=== PATIENT | female | born 1995 | race Hispanic/Latino ===

== ENCOUNTER 2017-12-06 10:58 | Inpatient (IN) | payer OTHER ==
[~2017-12-06] VITALS: Ht 149.9 cm; Wt 74.4 kg
[2017-12-06 11:50] LABS: ABSOLUTE BASOPHIL COUNT 0 /CUMM (0.0-0.2); ABSOLUTE EOSINOPHIL COUNT 0 /CUMM (0.0-0.7); ABSOLUTE LYMPH COUNT 1.7 /CUMM (1.2-3.4); ABSOLUTE MONOCYTE COUNT 0.6 /CUMM (0.10-0.60); BASOPHIL % 0.3 % (0.0-2.0); EOSINOPHIL % 0.5 % (0-5); GRANULOCYTE % 72.1 % (42.2-75.2); HEMATOCRIT 36.8 % (37-47); MEAN CORPUSCULAR HGB 29.3 PG (27.0-31.0); MEAN CORPUSCULAR HGB CONC 33.7 G/DL (33.0-37.0); MEAN CORPUSCULAR VOLUME 87.1 FL (81.0-99.0); MEAN PLATELET VOLUME 9.1 FL (7.4-10.4); PLATELET COUNT 216 /CUMM (130-400); RBC DISTRIBUTION WIDTH 15.9 % (11.5-14.5); RED BLOOD CELL CT 4.22 /CUMM (4.20-5.40); WHITE BLOOD CELL COUNT 8.4 /CUMM (4.8-10.8)
[2017-12-06] MEDS ORDERED: PRENATAL TABLE1 EAC2 PO (12:26)
[2017-12-06] MEDS ORDERED: MACROBID 100 M100 MG PO (12:27)
--- NOTE | 2017-12-06 17:53 | PN- Obstetrical ---
Subjective Subjective: NO C/O LIMA Objective Last 24 Hrs of Vital Signs/I&O Vital Signs Date Time Temp Pulse Resp B/P B/P Pulse O2 O2 Flow FiO2 Mean Ox Delivery Rate 12/06 1314 84 162/95 12/06 1224 141/96 Intake & Output 12/06 1600 12/06 0800 12/06 0000 Intake Total Output Total Balance Patient 164 lb Weight Physical Exam: PE PETITE WF IN LABOR ABD SOFT NT EXT +1 EDEMA +2 REFLEXES Obstetric Exam Dilation (cm): 6 Effacement (%): 90 Station: 0 Membranes: SROM Fluid: clear Multiple Gestation? No Contractions: Q 3MINUTES Assessment/Plan Assessment/Plan ASSESS TERM PIH PLAN CONT MG PITOCIN IUPC IFM
[2017-12-06 19:57] LABS: ABSOLUTE EOSINOPHIL COUNT 0 /CUMM (0.0-0.7)
[2017-12-06 20:25] LABS: ABSOLUTE BASOPHIL COUNT 0.1 /CUMM (0.0-0.2); ABSOLUTE GRANULOCYTE CT 10.8 /CUMM (1.4-6.5); ABSOLUTE LYMPH COUNT 1.7 /CUMM (1.2-3.4); ABSOLUTE MONOCYTE COUNT 0.7 /CUMM (0.10-0.60); BASOPHIL % 0.5 % (0.0-2.0); EOSINOPHIL % 0 % (0-5); GRANULOCYTE % 81.4 % (42.2-75.2); MEAN CORPUSCULAR HGB 28.6 PG (27.0-31.0); MEAN CORPUSCULAR HGB CONC 32.4 G/DL (33.0-37.0); MEAN CORPUSCULAR VOLUME 88.4 FL (81.0-99.0); MEAN PLATELET VOLUME 9.6 FL (7.4-10.4); PLATELET COUNT 251 /CUMM (130-400); RBC DISTRIBUTION WIDTH 16.2 % (11.5-14.5); RED BLOOD CELL CT 4.52 /CUMM (4.20-5.40)
[2017-12-06 20:27] LABS: WHITE BLOOD CELL COUNT 13.2 /CUMM (4.8-10.8)
--- NOTE | 2017-12-06 20:38 | Labor & Delivery Summary ---
Delivery Summary Vaginal Delivery: Vaginal: vertex Episiotomy/Lacerations: Episiotomy/Lacerations: 1ST DEGREE Placenta: Placenta: spontanteous, normal, 3 vessel Anesthesia: block Additional Comments: WITHOUT MECONIUM OVER 1ST DEGREE.VIABLE FEMALE .3 VESSEL CORD BY CCT INTACT .1ST DEGREE REPAIRED WITH SINGLE STITCH 30.
[2017-12-07 06:21] LABS: ABSOLUTE BASOPHIL COUNT 0 /CUMM (0.0-0.2); ABSOLUTE EOSINOPHIL COUNT 0 /CUMM (0.0-0.7); MEAN CORPUSCULAR VOLUME 88.2 FL (81.0-99.0)
[2017-12-07 06:35] LABS: ABSOLUTE GRANULOCYTE CT 10.6 /CUMM (1.4-6.5); ABSOLUTE LYMPH COUNT 2.1 /CUMM (1.2-3.4); ABSOLUTE MONOCYTE COUNT 1.2 /CUMM (0.10-0.60); BASOPHIL % 0.2 % (0.0-2.0); EOSINOPHIL % 0 % (0-5); GRANULOCYTE % 76.2 % (42.2-75.2); MEAN CORPUSCULAR HGB 27.9 PG (27.0-31.0); MEAN CORPUSCULAR HGB CONC 31.7 G/DL (33.0-37.0); MEAN PLATELET VOLUME 9.5 FL (7.4-10.4); PLATELET COUNT 232 /CUMM (130-400); RBC DISTRIBUTION WIDTH 16.2 % (11.5-14.5); RED BLOOD CELL CT 3.74 /CUMM (4.20-5.40); WHITE BLOOD CELL COUNT 13.9 /CUMM (4.8-10.8)
--- NOTE | 2017-12-07 16:25 | PN- Post Delivery/GYN ---
Subjective Subjective: NO LIMA OOB Objective Last 24 Hrs of Vital Signs/I&O Vital Signs Date Time Temp Pulse Resp B/P B/P Pulse O2 O2 Flow FiO2 Mean Ox Delivery Rate 12/07 1004 98.6 90 18 137/89 12/07 0258 135/87 12/07 0115 93 160/100 12/06 2202 138/82 12/06 2103 110 164/94 Physical Exam: PE PETITE HF IN NAD ABD SOFT NT LIVER EDGE FUNDUS FIRM NT EXT +2 KETURAH +2 REFLEXES Assessment/Plan Assessment/Plan SESS TERM PIH PLAN CHECK BP TITRATE LABETALOL
[2017-12-07 22:40] VITALS: BP 136/80
[2017-12-08] MEDS ORDERED: LABETALOL HCL100 M1 PO (09:43)
[2017-12-08] MEDS ORDERED: IBUPROFEN800 M1 PO (09:43)
== END 2017-12-08 12:50 | DRG 560 ==
LOC: CBCO 10:58 → GNO 11:33 → CBCO 12-17 08:00
PROVIDERS: Specialist
PROC: 10E0XZZ Delivery of Products of Conception, External Approach (ICD-10-PCS; principal; 2017-12-06)
PROC: 0HQ9XZZ Repair Perineum Skin, External Approach (ICD-10-PCS; 2017-12-06)
DX: O13.4 Gestational [pregnancy-induced] hypertension without significant proteinuria, complicating childbirth (principal); O77.0 Labor and delivery complicated by meconium in amniotic fluid; Z3A.38 38 weeks gestation of pregnancy; Z37.0 Single live birth; O70.0 First degree perineal laceration during delivery
CPT/HCPCS: GNOS; 36415; 81001; 84112; 87086; J0290; J3475

== ENCOUNTER → 2018-01-20 | Day surgery (SDC) | payer OTHER ==
[~2018-01-20] MED LIST: IBUPROFEN800 M1 PO; LABETALOL HCL100 M1 PO; MACROBID 100 M100 MG PO; PRENATAL TABLE1 EAC2 PO; [UNRECOGNIZED DRUG - OTHER] PO
--- NOTE | 2018-01-20 13:01 | Operative Report ---
Operative/Inv Procedure Report Surgery Date: 01/20/18 Name of Procedure: Excisional biopsy of left vulva lesion Pre-Operative Diagnosis: Left vulvar lesion Post-Operative Diagnosis: Same Estimated Blood Loss: less than 50ml Surgeon/Set Up Mechanic: Adolfo VELASCO,Luba Minor Anesthesia: moderate sedation, block Operative/Procedure Note Note: Procedure note patient was taken the operating and placed on position after adequate anesthesia patient was in dorsolithotomy position vagina from dorsal fashion bladder was catheterized examination anesthesia performed at this point I Marcaine was injected underneath the very tiny lesion on the left. Hemostasis was apparent the lesion was removed a needle tip Bovie sent to pathology. I Silvadene cream was applied to the surgical site hemostasis was apparent patient was returned spine position counts were correct she was awakened from anesthesia and transferred recovery room awake alert Findings: Quarter centimeter lesion on the left labia minor labia minora no lymphadenopathy otherwise normal exam
== END ==
LOC: STS 01:19
DX: N90.89 Other specified noninflammatory disorders of vulva and perineum (principal)
CPT/HCPCS: 81025; J0131; J2250